=== PATIENT | male | born 1985 | race African-American/Black ===

== ENCOUNTER 2019-05-29 20:02 | Emergency (ER) | payer BC ==
[~2019-05-29] VITALS: Ht 190.5 cm; Wt 99.8 kg
[2019-05-29 20:33] VITALS: BP 144/88
[2019-05-29] MEDS ORDERED: ZANAFLEX4 MG PO (23:09)
== END 2019-05-29 23:20 | disposition home or self-care (01) ==
LOC: ER 20:02
DX: S16.1XXA Strain of muscle, fascia and tendon at neck level, initial encounter (principal); V89.0XXA Person injured in unspecified motor-vehicle accident, nontraffic, initial encounter; Y93.89 Activity, other specified; Y92.89 Other specified places as the place of occurrence of the external cause; Y99.8 Other external cause status